=== PATIENT | female | born 2000 | race Caucasian/White ===

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

== ENCOUNTER 2018-03-07 19:02 | Emergency (ER) | payer OTHER ==
[2018-03-07] MEDS ORDERED: Lidocaine 1% 5ml(IM or SUTURE)(PAIN CLINIC) IJ ONE (19:08)
[2018-03-07] MEDS ORDERED: SODIUM BICARBONATE 2.4 MEQ VIAL INJ ONE (19:08)
[2018-03-07] MEDS ORDERED: NEOMYCIN/BACITRACIN/POLYMYXINB 1 EACH OINT.PACK TP ONE (20:13)
--- NOTE | 2018-03-07 20:13 | ED Physician Documentation ---
General Adult - HISTORIAN Historian: patient - HPI Stated Complaint: Left forearm laceration Chief Complaint: Laceration/Recheck/Suture Further Comments: yes (17 year old female presents with laceration to left forearm, state she put her arm through glass door. Last tetanus at age 13.) - ROS CONST: no problems EYES/ENT: none CVS/RESP: none GI/: none NEURO/PSYCH: other (cutting left arm; has appointment with [facility] in the AM) - PAST HX Past History: other (depression - off antidepressants 6 months) Other History: none Surgeries/Procedures: none Allergies/Adverse Reactions: Allergies Allergy/AdvReac Type Severity Reaction Status Date / Time nitrofurantoin Allergy Unknown Verified 03/07/18 19:14 phenazopyridine HCl Allergy Unknown Verified 03/07/18 19:14 [From Pyridium] sulfamethoxazole Allergy Unknown Verified 03/07/18 19:14 [From Bactrim] trimethoprim [From Bactrim] Allergy Unknown Verified 03/07/18 19:14 Home Medications: Ambulatory Orders Medication Instructions Recorded Mupirocin [Bactroban] 1 appl TP BID #1 tube 03/07/18 - SOCIAL HX Smoking History: cigarettes - FAMILY HX Family History: No - VITAL SIGNS Vital Signs: Vital Signs Temp Pulse Resp BP Pulse Ox 82 16 115/68 98 03/07/18 20:30 03/07/18 20:30 03/07/18 20:30 03/07/18 20:30 - REVIEWED ASSESSMENTS Nursing Assessment Reviewed: Yes Vitals Reviewed: Yes Procedures Wound Location: upper extremity (left forearm) Wound's Depth, Shape: linear Wound Explored: no foreign body removed Irrigated w/ Saline (ccs): 500 Betadine Prep?: No (chlorhexidine) Anesthesia: 1% Lidocaine Volume of Anesthetic: 5 Suture Size/Type: 5:0 Number of Sutures: 7 Layer Closure?: No Progress: Procedure Note laceration: Length: 5 cm laceration Location: Wound cleaned with chlorhexidine and NS; anesthetized with Lidocaine 1% and Neut - 5 cc - patient tolerated well. Irrigated with 500 NS; no foreign body noted Closed using sterile technique, interrupted sutures 5.0 ethilon x 7 stitches Wound edges well approximated. Tetanus: 4 years ago Patient tolerated procedure well; reviewed discharge instructions - verbalized understanding. Progress - Progress Progress: Discussed abrasions on right forearm - patient reports increased depression; has been off anti depressants for 6 months; denies suicidal ideation or plan. ED Results Lab/Radiology - Orders Orders: ED Orders Category Date Time Status Apply/change dressing NOW Care 03/07/18 20:14 Active Lidocaine 1% 5ml(IM or SUTURE) [Xylocaine] Med 03/07/18 19:08 Discontinued 50 mg IJ NOW ONE Neomycin/Bacitracin/Polymyxinb [Triple Antibiotic Med 03/07/18 20:13 Discontinued Ointment] 1 each TP NOW ONE Sodium Bicarbonate [Neut] Med 03/07/18 19:08 Discontinued 2.4 meq INJ NOW ONE General Adult Physical Exam - PHYSICAL EXAM GENERAL APPEARANCE: moderate distress EENT: eye inspection normal, ENT inspection normal, pharynx normal, no signs of dehydration, ARELY, no nystagmus, TM's nml RESPIRATORY: no resp distress, chest non-tender, breath sounds normal CVS: reg rate & rhythm, heart sounds normal, equal pulses, no murmur, no gallop , PMI nml, no JVD, no friction rub, 24 SKIN: warm/dry, normal color, other (5 cm laceration to left forearm; avulsion area proximal to laceration; right forearm with multiple superficial abrasions from patient cutting. ) EXTREMITIES: non-tender, normal range of motion, no evidence of injury, no edema , J, SCORER SINGLE NEURO: oriented X3, CN's nml as tested, motor nml, sensation nml, mood/affect nml Discharge Clincal Impression: Self-mutilation Forearm laceration Qualifiers: Encounter type: initial encounter Laterality: left Qualified Code(s): S51.812A - Laceration without foreign body of left forearm, initial encounter Forearm avulsion Qualifiers: Encounter type: initial encounter Laterality: left Qualified Code(s): S51.802A - Unspecified open wound of left forearm, initial encounter Clincal Impression: (Ruled Out): Laceration Prescriptions: Mupirocin [Bactroban] 1 appl TP BID #1 tube Referrals: Primary Doctor,No [Primary Care Provider] - 2 Days Additional Instructions: Keep the wound clean and dry until it has healed. You can wash or shower after 24 hours. Do not soak the wound in water and make sure it is dry afterwards (gently pat the area dry with a clean towel). Do not get into a swimming pool, hot tub, [place] or river until your stitches are removed. To remove your dressing, gently pull it off. If needed, you can dampen it with water then gently pull it off. Clean the laceration twice a day with hibiclens and rinse with water clean away any scabbed area Apply thin coat of antibiotic ointment after cleaning the wound. Cover with non-adherent bandage if able. If you have pain, take simple pain relief medication such as Tylenol or ibuprofen. If bandages or dressings get wet, they will need to be changed. Call your doctor for any signs of symptom of infection redness, drainage, pain. Have your stitches removed at your doctors office in 7-10 days. Discharged with bactroban ointment apply a thin coat twice a day. Condition: Stable Disposition: 01 HOME, SELF-CARE Decision to Admit: NO Decision Time: 20:13
[2018-03-07 20:37] VITALS: BP 115/68
== END 2018-03-07 20:30 | disposition home or self-care (01) ==
LOC: ED 19:02
DX: S51.812A Laceration without foreign body of left forearm, initial encounter (principal); S51.802A Unspecified open wound of left forearm, initial encounter; F48.9 Nonpsychotic mental disorder, unspecified; Y99.9 Unspecified external cause status
CPT/HCPCS: 12002; 96372

== ENCOUNTER 2018-04-21 22:19 | Emergency (ER) | payer SELFPAY ==
--- NOTE | 2018-04-21 22:41 | ED Physician Documentation ---
General Adult - HISTORIAN Historian: patient - HPI Chief Complaint: General Adult Further Comments: yes (17 year old female patient presents with complaint of fatigue; sore breast, nausea. Patient reports she has had 3 positive tests at home.) - ROS CONST: no problems EYES/ENT: none CVS/RESP: none GI/: nausea (this morning). denies: abdominal pain, problems urinating, vomiting, diarrhea, black stools LNMP: 03/14/28 MS/SKIN/LYMPH: none - PAST HX Past History: other (depression; history of cutting) Allergies/Adverse Reactions: Allergies Allergy/AdvReac Type Severity Reaction Status Date / Time nitrofurantoin Allergy Unknown Verified 04/21/18 22:37 phenazopyridine HCl Allergy Unknown Verified 04/21/18 22:37 [From Pyridium] sulfamethoxazole Allergy Unknown Verified 04/21/18 22:37 [From Bactrim] trimethoprim [From Bactrim] Allergy Unknown Verified 04/21/18 22:37 Home Medications: Ambulatory Orders Medication Instructions Recorded NK [NK] 04/21/18 - SOCIAL HX Smoking History: cigarettes - FAMILY HX Family History: No - VITAL SIGNS Vital Signs: Vital Signs Temp Pulse Resp BP Pulse Ox 115/68 03/07/18 20:30 - REVIEWED ASSESSMENTS Nursing Assessment Reviewed: Yes Vitals Reviewed: Yes Progress - Progress Progress: Extensive education on early . Reviewed discharge instruction; patient verbalized understanding. No smoking, drugs or alcohol; limit caffeine intake, increase healthy calories; rest, tylenol prn REGGIE 12/19/18 General Adult Physical Exam - PHYSICAL EXAM GENERAL APPEARANCE: [id number] N EENT: eye inspection normal RESPIRATORY: no resp distress, chest non-tender, breath sounds normal CVS: reg rate & rhythm, heart sounds normal, equal pulses, no murmur, no gallop , PMI nml, no JVD, no friction rub, 24 ABDOMEN: soft, no organomegaly, normal bowel sounds, no abdominal bruit, no distension BACK: normal inspection, no CVA tenderness SKIN: normal color, warm/dry, NR, INT, PAL, DR EXTREMITIES: non-tender, normal range of motion, no evidence of injury, no edema , J, [employer] NEURO: oriented X3, motor nml, sensation nml, mood/affect nml Discharge Clincal Impression: Qualifiers: Weeks of gestation: less than 8 weeks Qualified Code(s): Z3A.01 - Less than 8 weeks gestation of Additional Instructions: Go to the [facility]: Address: [address], [place] [address] Start a Vitamin - they are over the counter at any pharmacy. No alcohol, no smoking, no drugs You may use Tylenol as needed for headaches and discomfort. Get the book "What to expect when you're expecting". It is available at the local [facility]. Small frequent, bland meals. Use crackers and Sprite when you are nauseated. Condition: Stable Disposition: 01 HOME, SELF-CARE Decision to Admit: NO Decision Time: 22:41
[2018-04-21 23:14] VITALS: BP 124/70
== END 2018-04-21 23:10 | disposition home or self-care (01) ==
LOC: ED 22:19
DX: R53.83 Other fatigue (principal); Z3A.01 Less than 8 weeks gestation of pregnancy
CPT/HCPCS: 99282